=== PATIENT | male | born 1975 | race American Indian/Alaskan Native ===

== ENCOUNTER 2018-06-13 14:03 | Emergency (ER) | payer MEDICAID ==
[2018-06-13 15:15] VITALS: BMI 29.0
[2018-06-13 15:20] VITALS: RESP 18; TEMP 97.9; O2SAT 100
--- NOTE | 2018-06-13 15:48 | ED PDOC ---
Arrival/HPI - General Chief Complaint: Medical Clearance Historian: Patient - History of Present Illness Narrative History of Present Illness (Text): 06/13/18 15:47 42 y/o M, with past medical history of hypertension, and ESRD on hemodialysis (), presents to the ED for emergent dialysis today. Patient states his last dialysis was last week on 06/06/18 without any complication, however was unable to receive his treatment this week secondary to recent relocation. Patient additionally informs missing his routine medications for last two days. Patient currently denies any somatic complaints. Patient denies any fevers, chills, headache, dizziness, chest pain, shortness of breath, dyspnea on exertion, cough, abdominal pain, nausea, vomiting, diarrhea, back pain, neck pain, or any other complaints. Time/Duration: Prior to Arrival Symptom Onset: Gradual Symptom Course: Unchanged Activities at Onset: Light Context: Home Past Medical History - Provider Review Nursing Documentation Reviewed: Yes - Infectious Disease Hx of Infectious Diseases: None - Cardiac Hx Cardiac Disorders: Yes Hx Hypertension: Yes - Pulmonary Hx Respiratory Disorders: No - Neurological Hx Neurological Disorder: No - HEENT Hx HEENT Disorder: No - Renal Hx Renal Disorder: Yes Hx Dialysis: Yes (//Tue) Date of Last Dialysis Treatment: 06/06/18 Hx Renal Failure: Yes - Endocrine/Metabolic Hx Endocrine Disorders: No - Hematological/Oncological Hx Blood Disorders: No - Integumentary Hx Dermatological Disorder: No - Musculoskeletal/Rheumatological Hx Musculoskeletal Disorders: No - Gastrointestinal Hx Gastrointestinal Disorders: No - Genitourinary/Gynecological Hx Genitourinary Disorders: No - Psychiatric Hx Psychophysiologic Disorder: No Hx Substance Use: No - Surgical History Hx Arteriovenous Shunt: Yes Family/Social History - Physician Review Nursing Documentation Reviewed: Yes Family/Social History: Unknown Family HX Smoking Status: Never Smoked Hx Alcohol Use: No Hx Substance Use: No Allergies/Home Meds Allergies/Adverse Reactions: Allergies No Known Allergies Allergy (Verified 06/13/18 15:15) Home Medications: Home Meds Medication Instructions Recorded Confirmed Torsemide [Demadex] 10 mg PO BID 06/13/18 06/13/18 amLODIPine [Norvasc] 10 mg PO BID 06/13/18 06/13/18 cloNIDine [Catapres] 0.2 mg PO DAILY 06/13/18 06/13/18 Review of Systems - Physician Review All systems were reviewed & negative as marked: Yes - Review of Systems Constitutional: absent: Fevers Respiratory: absent: SOB, Cough Cardiovascular: absent: Chest Pain Gastrointestinal: absent: Abdominal Pain, Diarrhea, Nausea, Vomiting Genitourinary Male: absent: Dysuria, Urinary Output Changes Musculoskeletal: absent: Back Pain, Neck Pain Skin: absent: Rash Neurological: absent: Headache, Dizziness Physical Exam Vital Signs Reviewed: Yes Vital Signs Temp Pulse Resp BP Pulse Ox 06/13/18 15:18 97.9 F 67 18 181/65 H 100 Temperature: Afebrile Blood Pressure: Hypertensive Pulse: Regular Respiratory Rate: Normal Appearance: Positive for: Well-Appearing, Non-Toxic, Comfortable Pain Distress: None Mental Status: Positive for: Alert and Oriented X 3 Medical Decision Making ED Course and Treatment: 06/13/18 15:52 Impression: 42 year old male presents to the ED for emergent dialysis today. Differential Diagnosis included but are not limited to: Plan: -- Labs -- Reassess and disposition Prior Visits: Notes and results from previous visits were reviewed. Progress Notes: 06/13/18 16:[address] Boston, who will speak to dialysis team. 06/13/18 17:[address] Herrera who accepts the patient 06/13/18 19:42 Chest X-Ray shows: FINDINGS: LUNGS: No active pulmonary disease. PLEURA: No significant pleural effusion identified, no pneumothorax apparent. CARDIOVASCULAR: No atherosclerotic calcification present Cardiomegaly. No evidence of acute, significant cardiovascular disease. OSSEOUS STRUCTURES: No significant abnormalities. VISUALIZED UPPER ABDOMEN: Normal. OTHER FINDINGS: None. IMPRESSION: No active disease. - RAD Interpretation Art Teacher: Radiologist - EKG Interpretation EKG Interpretation (Text): 06/13/18 18:35 Reviewed EKG, shows: NSR at 66 BPM. LVH present. Peaked T waves seen in precordial leads. Interpreted by ED Physician: Yes Type: 12 lead EKG - Scribe Statement The provider has reviewed the documentation as recorded by the Scribe Paola Stewart. All medical record entries made by the Scribe were at my direction and personally dictated by me. I have reviewed the chart and agree that the record accurately reflects my personal performance of the history, physical exam, medical decision making, and the department course for this patient. I have also personally directed, reviewed, and agree with the discharge instructions and disposition. Disposition/Present on Arrival - Present on Arrival History of DVT/PE: No History of Uncontrolled Diabetes: No Urinary Catheter: No History of Decub. Ulcer: No History Surgical Site Infection Following: None - Disposition Referrals: PCP,NO [Primary Care Provider] - Follow up with primary
[2018-06-13] MEDS ORDERED: Sodium Chloride 0.9% 1,000 ML IV STA (16:15)
[2018-06-13] MEDS ORDERED: Atrop/Hyosc/Scopal/PB Elixir (120 ml) PO STA (16:16)
[2018-06-13] MEDS ORDERED: Alum-Mag Hydrox-Simethicone Susp (30 mL) PO STA (16:16)
[2018-06-13 16:49] LABS: BASO # 0.04 K/mm3 (0.0-2.0); BASO % 0.5 % (0.0-3.0); EOS # 0.3 (0.0-0.7); EOS % 3.5 % (1.5-5.0); HEMOGLOBIN 9.2 g/dL (14.0-18.0); LYMPH # 1.3 (1.2-3.4); LYMPH % 14.2 % (22.0-35.0); MEAN CELL VOLUME 92.1 fl (80.0-105.0); MEAN CORPUSCULAR HEMOGLOBIN 30.3 pg (25.0-35.0); MEAN CORPUSCULAR HGB CONC 32.9 g/dl (31.0-37.0); MEAN PLATELET VOLUME 9.2 fl (7.0-11.0); MONO # 0.4 (0.1-0.6); MONO % 4.1 % (1.0-6.0); RBC 3.04 10^6/uL (3.5-6.1); RED CELL DISTRIBUTION WIDTH 14.5 % (11.5-14.5); WHITE BLOOD COUNT 8.9 10^3/uL (4.5-11.0)
[2018-06-13 17:00] LABS: ALB/GLOB RATIO 1.6 (1.1-1.8); ALBUMIN 4.1 g/dL (3.0-4.8); CALCIUM 9.2 mg/dL (8.4-10.5)
[2018-06-13 17:21] VITALS: BP 160/100; PULSE 72
--- NOTE | 2018-06-13 18:13 | CP.PCM.HP ---
<Guero Kinney - Last Filed: 06/13/18 18:24> History of Present Illness - History of Present Illness History of Present Illness: Guero Kinney DO, PGY-1 Hospitalist Admission History and Physical for Dr. Olivarez CC: missed dialysis HPI: Patient is a 43 year old male with PMH of HTN and ESRD (T// dialysis) who presents for concern of worsening b/l LE swelling, fatigue, and SOB with exertion since this AM. Patient states that he has not had a dialysis session since 06/03/18. He previously went to dialysis in [facility] but has now moved here. He states he has all of his paperwork from [employer] but has not been able to set up with a center yet. Otherwise he denies fever/chills, CP, SOB at rest, cough, nausea/vomiting/abdominal pain, peripheral numbness/tingling, or urinary complaints. PMD: previously had PMD in [place] but has no PMD here Past Medical Hx: HTN and ESRD (/ dialysis) Past Surgical Hx: L AV fistula for dialysis Allergies: NKA Home medications: Norvasc 10 mg daily, Family Hx: father had CKD at early age Social Hx: admits to prior cigarette smoking for about one year and prior social alcohol use but has stopped due to ESRD. Denies illicit drug use Pharmacy: previously went to [facility] in [place] Present on Admission - Present on Admission Any Indicators Present on Admission: No History of DVT/PE: No History of Uncontrolled Diabetes: No Urinary Catheter: No Decubitus Ulcer Present: No Review of Systems - Constitutional Constitutional: absent: Chills, Fever - EENT Eyes: absent: Change in Vision, Discharge - Cardiovascular Cardiovascular: Dyspnea on Exertion. absent: Chest Pain, Chest Pain at Rest, Chest Pain with Activity, Orthopnea, Palpitations - Respiratory Respiratory: Dyspnea on Exertion. absent: Cough, Dyspnea - Gastrointestinal Gastrointestinal: absent: Abdominal Pain, Nausea, Vomiting - Genitourinary Genitourinary: absent: Change in Urinary Stream, Difficulty Urinating - Neurological Neurological: absent: Dizziness, Numbness, Tingling Past Patient History - Infectious Disease Hx of Infectious Diseases: None - Past Social History Smoking Status: Never Smoked - CARDIAC Hx Cardiac Disorders: Yes Hx Hypertension: Yes - PULMONARY Hx Respiratory Disorders: No - NEUROLOGICAL Hx Neurological Disorder: No - HEENT Hx HEENT Problems: No - RENAL Hx Chronic Kidney Disease: Yes Hx Dialysis: Yes (//Tue) Date of Last Dialysis Treatment: 06/06/18 Hx Renal Failure: Yes - ENDOCRINE/METABOLIC Hx Endocrine Disorders: No - HEMATOLOGICAL/ONCOLOGICAL Hx Blood Disorders: No - INTEGUMENTARY Hx Dermatological Problems: No - MUSCULOSKELETAL/RHEUMATOLOGICAL Hx Musculoskeletal Disorders: No - GASTROINTESTINAL Hx Gastrointestinal Disorders: No - GENITOURINARY/GYNECOLOGICAL Hx Genitourinary Disorders: No - PSYCHIATRIC Hx Psychophysiologic Disorder: No Hx Substance Use: No - SURGICAL HISTORY Hx Arteriovenous Shunt: Yes Meds Allergies/Adverse Reactions: Allergies Allergy/AdvReac Type Severity Reaction Status Date / Time No Known Allergies Allergy Verified 06/13/18 15:15 Physical Exam - Constitutional Appears: Non-toxic, No Acute Distress - Head Exam Head Exam: ATRAUMATIC, NORMOCEPHALIC - Eye Exam Eye Exam: EOMI, PERRL - ENT Exam ENT Exam: Mucous Membranes Moist - Neck Exam Neck exam: Positive for: Full Rom, Normal Inspection - Respiratory Exam Respiratory Exam: Clear to Auscultation Bilateral, NORMAL BREATHING PATTERN. absent: Rales, Rhonchi, Wheezes - Cardiovascular Exam Cardiovascular Exam: REGULAR RHYTHM, RRR, +S1, +S2. absent: Diastolic murmur, Gallop, Rubs, Systolic Murmur - GI/Abdominal Exam GI & Abdominal Exam: Normal Bowel Sounds, Soft. absent: Guarding, Tenderness - Extremities Exam Extremities exam: Positive for: full ROM, normal capillary refill, pedal edema (2+ b/l), pedal pulses present - Back Exam Back exam: NORMAL INSPECTION - Neurological Exam Neurological exam: Alert, Oriented x3 - Psychiatric Exam Psychiatric exam: Normal Affect, Normal Mood - Skin Skin Exam: Dry, Intact, Warm Results - Vital Signs Recent Vital Signs: Last Vital Signs Temp 97.9 F 06/13/18 15:18 Pulse 72 06/13/18 17:20 Resp 18 06/13/18 16:43 BP 160/100 H 06/13/18 17:20 Pulse Ox 100 06/13/18 16:43 - Labs Result Diagrams: 06/13/18 16:30 06/13/18 16:30 Labs: Laboratory Results - last 24 hr 06/13/18 06/13/18 16:30 16:30 WBC 8.9 RBC 3.04 L Hgb 9.2 L Hct 28.0 L MCV 92.1 MCH 30.3 MCHC 32.9 RDW 14.5 Plt Count 318 MPV 9.2 Neut % (Auto) 77.7 H Lymph % (Auto) 14.2 L [place] % (Auto) 4.1 Eos % (Auto) 3.5 Baso % (Auto) 0.5 Lymph # (Auto) 1.3 [place] # (Auto) 0.4 Eos # (Auto) 0.3 Baso # (Auto) 0.04 Absolute Neuts (auto) 6.90 H Sodium 138 Potassium 5.4 H Chloride 107 Carbon Dioxide 17 L Anion Gap 20 BUN 122 H* Creatinine 19.9 H* Est GFR ( Amer) 3 Est GFR (Non-Af Amer) 3 Random Glucose 158 H Calcium 9.2 Magnesium 2.7 H Total Bilirubin 0.3 AST 18 ALT 15 Alkaline Phosphatase 87 Total Protein 6.7 Albumin 4.1 Globulin 2.6 Albumin/Globulin Ratio 1.6 Assessment & Plan - Assessment and Plan (Free Text) Assessment: 43 yo M with PMH of HTN and ESRD presents with b/l LE swelling and dyspnea on exertion likely 2/2 missed dialysis sessions. Plan: B/l LE Edema Most likely 2/2 missed dialysis sessions BUN/Cr and K consistent with missed dialysis Arranging for dialysis tonight per Dr. Boston Monitor for improvement of edema, electrolytes Recheck all electrolytes, Mg, Phos in AM Nephrology consult placed, all recs appreciated HTN Will hold anti-hypertensives tonight until after dialysis May resume home meds in AM DVT/GI PPX: SC Heparin/protonix Full Code HHD Monitor on med/surg Patient seen, examined, and plan discussed with my attending Dr. Sher Kinney, D.O. IM Resident PGY-1 Pager: [phone] <Ginette Olivarez - Last Filed: 06/14/18 15:23> Results - Vital Signs Recent Vital Signs: Last Vital Signs Temp 97.9 F 06/13/18 15:18 Pulse 72 06/13/18 17:20 Resp 18 06/13/18 16:43 BP 160/100 H 06/13/18 17:20 Pulse Ox 100 06/13/18 16:43 - Labs Result Diagrams: 06/13/18 16:30 06/13/18 16:30 Labs: Laboratory Results - last 24 hr 06/13/18 06/13/18 16:30 16:30 WBC 8.9 RBC 3.04 L Hgb 9.2 L Hct 28.0 L MCV 92.1 MCH 30.3 MCHC 32.9 RDW 14.5 Plt Count 318 MPV 9.2 Neut % (Auto) 77.7 H Lymph % (Auto) 14.2 L [place] % (Auto) 4.1 Eos % (Auto) 3.5 Baso % (Auto) 0.5 Lymph # (Auto) 1.3 [place] # (Auto) 0.4 Eos # (Auto) 0.3 Baso # (Auto) 0.04 Absolute Neuts (auto) 6.90 H Sodium 138 Potassium 5.4 H Chloride 107 Carbon Dioxide 17 L Anion Gap 20 BUN 122 H* Creatinine 19.9 H* Est GFR ( Amer) 3 Est GFR (Non-Af Amer) 3 Random Glucose 158 H Calcium 9.2 Magnesium 2.7 H Total Bilirubin 0.3 AST 18 ALT 15 Alkaline Phosphatase 87 Total Protein 6.7 Albumin 4.1 Globulin 2.6 Albumin/Globulin Ratio 1.6 Attending/Attestation - Attestation I have personally seen and examined this patient.: Yes I have fully participated in the care of the patient.: Yes I have reviewed all pertinent clinical information: Yes Notes (Text): 06/14/18 15:19 Attending note; Patient seen and examined with resident and ER. Patient is alert and awake. Complaining of leg swelling. Requesting immediate dialysis. Not in any acute distress. Patient is demanding. Patient is a 43 year old male with PMH of HTN and ESRD (T// dialysis) who presents for concern of worsening b/l LE swelling, fatigue, and SOB with exertion since this AM. Patient states that he has not had a dialysis session since 06/03/18. He previously went to dialysis in [facility] but has now moved here. He did not make any arrangements for dialysis before left [facility]. currently Demanding dialysis. 1. End-stage renal disease on dialysis; noncompliant with follow-up due to recent move. Patient did not make any arrangements with the dialysis unit. Currently no primary care doctor. Case discussed with nephrology in detail. Plan for dialysis today. 2. Uncontrolled hypertension; patient does not have any prescription/ or medications. Patient will be admitted and monitored closely. We will get social insurance adviser evaluation. Addendum; Patient eloped before dialysis.
--- NOTE | 2018-06-13 18:34 | CP.PCM.CON ---
<Brian Mahmood - Last Filed: 06/13/18 18:45> History of Present Illness - History of Present Illness History of Present Illness: Brian Mahmood PGY2 Nephrology Consult NOte for Dr. Boston 43 year old AA male with PMH of HTN and ESRD (T//S dialysis) who presents for concern of worsening b/l LE swelling, fatigue, and SOB with exertion since this AM. Patient states that he has not had a dialysis session since 06/03/18 because he recently was in the process of moving from [facility] to the [facility]. He also states he has not been able to take all his medications for the past two days because he ran out of them. Patient denies chest pain, SOB at rest, cough, nausea/vomiting/abdominal pain, peripheral numbness/tingling, or urinary complaints. Patient also states he still makes urine. 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 PMD: does not recall name but located in [place] [employer] Tender: Does not recall name but located in [place] Past Medical Hx: HTN and ESRD (T//S dialysis) Past Surgical Hx: L AV fistula for dialysis Allergies: NKA Home medications: Norvasc 10 mg daily, carvedilol, torsemide, clonidine Family Hx: father had CKD at early age Social Hx: has smoked tobacco occasionally in the past but quit since dialysis, denies alcohol or illicit drug use Pharmacy:[facility] in [place] Review of Systems - Constitutional Constitutional: Fatigue, Weight Gain. absent: Chills, Fever - Cardiovascular Cardiovascular: Dyspnea, Palpitations, Pedal Edema. absent: Chest Pain, Chest Pain at Rest, Chest Pain with Activity, Diaphoresis, Lightheadedness - Respiratory Respiratory: Dyspnea on Exertion. absent: Cough, Wheezing, Pain on Inspiration, Chest Congestion - Gastrointestinal Gastrointestinal: absent: Abdominal Pain, Nausea, Vomiting - Genitourinary Genitourinary: absent: Difficulty Urinating, Dysuria, Flank Pain, Hematuria, Urinary Incontinence - Musculoskeletal Musculoskeletal: absent: Back Pain, Muscle Weakness, Tingling - Neurological Neurological: absent: Disequilibrium, Dizziness, Tingling - Endocrine Endocrine: absent: Excessive Sweating Past Patient History - Infectious Disease Hx of Infectious Diseases: None - Past Social History Smoking Status: Never Smoked - CARDIAC Hx Cardiac Disorders: Yes Hx Hypertension: Yes - PULMONARY Hx Respiratory Disorders: No - NEUROLOGICAL Hx Neurological Disorder: No - HEENT Hx HEENT Problems: No - RENAL Hx Chronic Kidney Disease: Yes Hx Dialysis: Yes (//Tue) Date of Last Dialysis Treatment: 06/06/18 Hx Renal Failure: Yes - ENDOCRINE/METABOLIC Hx Endocrine Disorders: No - HEMATOLOGICAL/ONCOLOGICAL Hx Blood Disorders: No - INTEGUMENTARY Hx Dermatological Problems: No - MUSCULOSKELETAL/RHEUMATOLOGICAL Hx Musculoskeletal Disorders: No - GASTROINTESTINAL Hx Gastrointestinal Disorders: No - GENITOURINARY/GYNECOLOGICAL Hx Genitourinary Disorders: No - PSYCHIATRIC Hx Psychophysiologic Disorder: No Hx Substance Use: No - SURGICAL HISTORY Hx Arteriovenous Shunt: Yes Meds Allergies/Adverse Reactions: Allergies Allergy/AdvReac Type Severity Reaction Status Date / Time No Known Allergies Allergy Verified 06/13/18 15:15 - Medications Medications: Current Medications Acetaminophen (Tylenol 325mg Tab) 650 mg PO Q6H PRN PRN Reason: Pain, moderate (4-7) Amlodipine Besylate (Norvasc) 10 mg PO BID RAMÍREZ Clonidine HCl (Catapres) 0.2 mg PO DAILY [facility] Heparin Sodium (Porcine) (Heparin) 5,000 units SC Q8 RAMÍREZ; Protocol Insulin Human Lispro (Humalog Med) 0 units SC ACHS RAMÍREZ; Protocol Pantoprazole Sodium (Protonix Ec Tab) 40 mg PO 0600 RAMÍREZ Torsemide (Demadex) 10 mg PO BID RAMÍREZ Physical Exam - Constitutional Appears: Non-toxic, No Acute Distress - Head Exam Head Exam: ATRAUMATIC, NORMAL INSPECTION, NORMOCEPHALIC - Eye Exam Eye Exam: Normal appearance - ENT Exam ENT Exam: Mucous Membranes Moist - Respiratory Exam Respiratory Exam: Clear to Auscultation Bilateral, NORMAL BREATHING PATTERN - Cardiovascular Exam Cardiovascular Exam: REGULAR RHYTHM, +S1, +S2 - GI/Abdominal Exam GI & Abdominal Exam: Soft. absent: Tenderness - Extremities Exam Extremities exam: Positive for: pedal edema, pedal pulses present. Negative for: calf tenderness, tenderness Additional comments: AV fistula in left arm, audible thrill, no bruit - Neurological Exam Neurological exam: Alert, CN II-XII Intact, Oriented x3 - Skin Skin Exam: Normal Color, Warm Results - Vital Signs Recent Vital Signs: Last Vital Signs Temp 97.9 F 06/13/18 15:18 Pulse 72 06/13/18 17:20 Resp 18 06/13/18 16:43 BP 160/100 H 06/13/18 17:20 Pulse Ox 100 06/13/18 16:43 - Labs Result Diagrams: 06/13/18 16:30 06/13/18 16:30 Labs: Laboratory Results - last 24 hr 06/13/18 06/13/18 16:30 16:30 WBC 8.9 RBC 3.04 L Hgb 9.2 L Hct 28.0 L MCV 92.1 MCH 30.3 MCHC 32.9 RDW 14.5 Plt Count 318 MPV 9.2 Neut % (Auto) 77.7 H Lymph % (Auto) 14.2 L [place] % (Auto) 4.1 Eos % (Auto) 3.5 Baso % (Auto) 0.5 Lymph # (Auto) 1.3 [place] # (Auto) 0.4 Eos # (Auto) 0.3 Baso # (Auto) 0.04 Absolute Neuts (auto) 6.90 H Sodium 138 Potassium 5.4 H Chloride 107 Carbon Dioxide 17 L Anion Gap 20 BUN 122 H* Creatinine 19.9 H* Est GFR ( Amer) 3 Est GFR (Non-Af Amer) 3 Random Glucose 158 H Calcium 9.2 Magnesium 2.7 H Total Bilirubin 0.3 AST 18 ALT 15 Alkaline Phosphatase 87 Total Protein 6.7 Albumin 4.1 Globulin 2.6 Albumin/Globulin Ratio 1.6 Assessment & Plan - Assessment and Plan (Free Text) Assessment: 43 year old AA male with PMH of HTN and ESRD (T//S dialysis) who presents for concern of worsening b/l LE swelling, fatigue, and SOB with exertion since this AM. Patient has not had HD since 06/03/18 and has not taken his blood pressure medications for the pat two days. Plan: 1. ESRD on HD -patient has not had dialysis since 06/03/18 -Cr 19.9, BUN 122 -K of 5.4 -Na within normal limits -EKG was normal sinus rhythm, unofficial read -Chest xray does not show significant congestion, will wait for official read -lower extremity edema present -will receive emergent HD -continue to monitor -repeat labs in AM 2. HTN Chronic -BP 181/65 on admission -given clonidine .2mg, norvasc 10mg in ED with improvement in BP to 160/100 -will resume home meds tomorrow -avoid dropping blood pressure too rapidly before HD session -continue to monitor 3. Elevated Blood Sugar -BS of 158 -insulin sliding scale -lipid panel pending -hemoglobin A1C pending <Galindo Boston - Last Filed: 06/14/18 13:20> Results - Vital Signs Recent Vital Signs: Last Vital Signs Temp 97.9 F 06/13/18 15:18 Pulse 72 06/13/18 17:20 Resp 18 06/13/18 16:43 BP 160/100 H 06/13/18 17:20 Pulse Ox 100 06/13/18 16:43 - Labs Result Diagrams: 06/13/18 16:30 06/13/18 16:30 Labs: Laboratory Results - last 24 hr 06/13/18 06/13/18 16:30 16:30 WBC 8.9 RBC 3.04 L Hgb 9.2 L Hct 28.0 L MCV 92.1 MCH 30.3 MCHC 32.9 RDW 14.5 Plt Count 318 MPV 9.2 Neut % (Auto) 77.7 H Lymph % (Auto) 14.2 L [place] % (Auto) 4.1 Eos % (Auto) 3.5 Baso % (Auto) 0.5 Lymph # (Auto) 1.3 [place] # (Auto) 0.4 Eos # (Auto) 0.3 Baso # (Auto) 0.04 Absolute Neuts (auto) 6.90 H Sodium 138 Potassium 5.4 H Chloride 107 Carbon Dioxide 17 L Anion Gap 20 BUN 122 H* Creatinine 19.9 H* Est GFR ( Amer) 3 Est GFR (Non-Af Amer) 3 Random Glucose 158 H Calcium 9.2 Magnesium 2.7 H Total Bilirubin 0.3 AST 18 ALT 15 Alkaline Phosphatase 87 Total Protein 6.7 Albumin 4.1 Globulin 2.6 Albumin/Globulin Ratio 1.6 Attending/Attestation - Attestation I have personally seen and examined this patient.: Yes I have fully participated in the care of the patient.: Yes I have reviewed all pertinent clinical information: Yes Notes (Text): Patient seen and examined; I agree with the resident's note as above with the following additions/edits: 43 yo M w/ pmh of htn and ESRD on HD (since past 8 months, at [facility]), presented to ED with leg swelling and missed HD; nephrology being consulted for need for urgent HD; Patient reports last HD treatment 10 days ago; had to move to this area due to some family issues; currently denies shortness of breath though legs much more edematous than usual; makes normal amount of urine and takes diuretics; has been trying to have decreased PO intake in order to avoid toxin buildup in the setting of missed HD; otherwise says his appetite is well and is currently hungry; Lungs clear on exam and by CXR; 2+ b/l lower ext edema noted though patient in no resp distress and not requiring supplemental FIO2; minimal asterisix; Patient also with uncontrolled htn; will continue home meds but will benefit from UF on HD; Anemia of CKD; will need to check iron studies; Patient seen this evening in ED; was told that he would have to wait about 1-2 hrs to start HD due to logistical issues and that there's no absolute emergency to start HD stat; nevertheless, he should have HD treatment tonight to avoid an emergency later; patient, however, said that he couldn't wait and needed to tend to his young daughter; I informed him although he has some residual renal function that has allowed him to survive for this many days without HD, skipping further HD treatment was a dangerous decision and against medical advice; I told him of the risk of sudden ; I was later informed by HD nurse that patient eloped from ED; we will reach out to him to enourage him to get HD treatment [place].
--- NOTE | 2018-06-13 18:43 | RAD ---
Date of service: 06/13/2018 HISTORY: r/o CHF COMPARISON: No prior. FINDINGS: LUNGS: No active pulmonary disease. PLEURA: No significant pleural effusion identified, no pneumothorax apparent. CARDIOVASCULAR: No atherosclerotic calcification present Cardiomegaly. No evidence of acute, significant cardiovascular disease. OSSEOUS STRUCTURES: No significant abnormalities. VISUALIZED UPPER ABDOMEN: Normal. OTHER FINDINGS: None. IMPRESSION: No active disease.
[2018-06-13] MEDS ORDERED: Insulin Lispro (humaLOG) MEDIUM Coverage SC SCH (22:00)
--- NOTE | 2018-06-13 22:19 | CARD ---
APPROVED REPORT Date of service: 06/13/2018 EKG Measurement Heart [id number] <Conclusion> Normal sinus rhythm Minimal voltage criteria for LVH, may be normal variant NDSTT abnormalities Abnormal ECG
[2018-06-14] MEDS ORDERED: Pantoprazole 40 mg EC Tab PO SCH (06:00)
--- NOTE | 2018-06-14 15:57 | CP.PCM.DIS ---
Provider - Provider Primary care physician: NO PRIMARY CARE PROVIDER Consults: 06/13/18 17:17 Physician Consult Stat Comment: Consulting Provider: Galindo Boston Consulting Physician: Galindo Boston Reason for Consult: ESRD needing emergenc dialysis Time Spent in preparation of Discharge (in minutes): 35 Diagnosis - Discharge Diagnosis (1) ESRD needing dialysis Status: Chronic Hospital Course - Lab Results Lab Results: Most Recent Lab Values WBC 8.9 10^3/uL (4.5-11.0) 06/13/18 16:30 RBC 3.04 10^6/uL (3.5-6.1) L 06/13/18 16:30 Hgb 9.2 g/dL (14.0-18.0) L 06/13/18 16:30 Hct 28.0 % (42.0-52.0) L 06/13/18 16:30 MCV 92.1 fl (80.0-105.0) 06/13/18 16:30 MCH 30.3 pg (25.0-35.0) 06/13/18 16:30 MCHC 32.9 g/dl (31.0-37.0) 06/13/18 16:30 RDW 14.5 % (11.5-14.5) 06/13/18 16:30 Plt Count 318 10^3/uL (120.0-450.0) 06/13/18 16:30 MPV 9.2 fl (7.0-11.0) 06/13/18 16:30 Neut % (Auto) 77.7 % (50.0-68.0) H 06/13/18 16:30 Lymph % (Auto) 14.2 % (22.0-35.0) L 06/13/18 16:30 Gregg % (Auto) 4.1 % (1.0-6.0) 06/13/18 16:30 Eos % (Auto) 3.5 % (1.5-5.0) 06/13/18 16:30 Baso % (Auto) 0.5 % (0.0-3.0) 06/13/18 16:30 Lymph # (Auto) 1.3 (1.2-3.4) 06/13/18 16:30 Gregg # (Auto) 0.4 (0.1-0.6) 06/13/18 16:30 Eos # (Auto) 0.3 (0.0-0.7) 06/13/18 16:30 Baso # (Auto) 0.04 K/mm3 (0.0-2.0) 06/13/18 16:30 Absolute Neuts (auto) 6.90 (1.4-6.5) H 06/13/18 16:30 Sodium 138 mmol/L (132-148) 06/13/18 16:30 Potassium 5.4 mmol/L (3.6-5.0) H 06/13/18 16:30 Chloride 107 mmol/L (98-107) 06/13/18 16:30 Carbon Dioxide 17 mmol/L (21-33) L 06/13/18 16:30 Anion Gap 20 (10-20) 06/13/18 16:30 BUN 122 mg/dL (7-21) H* 06/13/18 16:30 Creatinine 19.9 mg/dl (0.8-1.5) H* 06/13/18 16:30 Est GFR ( Amer) 3 06/13/18 16:30 Est GFR (Non-Af Amer) 3 06/13/18 16:30 Random Glucose 158 mg/dL (70-110) H 06/13/18 16:30 Calcium 9.2 mg/dL (8.4-10.5) 06/13/18 16:30 Magnesium 2.7 mg/dL (1.7-2.2) H 06/13/18 16:30 Total Bilirubin 0.3 mg/dL (0.2-1.3) 06/13/18 16:30 AST 18 U/L (17-59) 06/13/18 16:30 ALT 15 U/L (7-56) 06/13/18 16:30 Alkaline Phosphatase 87 U/L (38-126) 06/13/18 16:30 Total Protein 6.7 g/dL (5.8-8.3) 06/13/18 16:30 Albumin 4.1 g/dL (3.0-4.8) 06/13/18 16:30 Globulin 2.6 gm/dL 06/13/18 16:30 Albumin/Globulin Ratio 1.6 (1.1-1.8) 06/13/18 16:30 - Hospital Course Hospital Course: Patient was scheduled for dialysis and consent obtained per Dr. Boston but eloped prior to receiving dialysis. Patient eloped from ED. Discharge Exam - Head Exam Head Exam: ATRAUMATIC, NORMAL INSPECTION, NORMOCEPHALIC Additional comments: unable to obtain, patient eloped Discharge Plan - Follow Up Plan Condition: GOOD Disposition: ELOPEMENT - ER ONLY Referrals: PCP,NO [Primary Care Provider] - Follow up with primary
== END 2018-06-13 19:43 | disposition left against medical advice (07) ==
LOC: ED 14:03 → UNDOADMIN 17:16 → ERH 17:16 → ED 19:43
DX: I12.0 Hypertensive chronic kidney disease with stage 5 chronic kidney disease or end stage renal disease (principal); N18.6 End stage renal disease; Z99.2 Dependence on renal dialysis; Z91.15 Patient's noncompliance with renal dialysis; Z87.891 Personal history of nicotine dependence

== ENCOUNTER 2018-08-09 15:50 | Observation (INO) | payer MEDICAID ==
[2018-08-09 16:28] VITALS: BP 146/83; PULSE 73; RESP 19; TEMP 97.6; O2SAT 98; BMI 30.9
--- NOTE | 2018-08-09 16:55 | ED PDOC ---
Arrival/HPI - General Chief Complaint: Medical Clearance Time Seen by Provider: 08/09/18 15:59 Historian: Patient EM Caveat: Respiratory Distress - History of Present Illness Narrative History of Present Illness (Text): 08/09/18 15:59 Pt is a 43 y/o male, with a past medical history of ESRD on dialysis (M/W/F) and hypertension, who presents to the emergency department for evaluation of dialysis graft on left upper arm. Patient informs [facility] dialysis informed his dialysis graft is clogged. Patient's last dialysis was last Tuesday07/04/18. Patient informs missing dialysis on 07/07/18 as well as today. Patient does not have a PMD. Patient denies any fevers, chills, headache, dizziness, chest pain, shortness of breath, dyspnea on exertion, cough, abdominal pain, nausea, vomiting, diarrhea, dysuria, hematuria, urinary frequency changes, back pain, neck pain, or any other complaint. Symptom Onset: Gradual Symptom Course: Unchanged Activities at Onset: Light Context: Other (Dialysis Center ) Past Medical History - Provider Review Nursing Documentation Reviewed: Yes - Infectious Disease Hx of Infectious Diseases: None - Cardiac Hx Cardiac Disorders: No - Pulmonary Hx Respiratory Disorders: No - Neurological Hx Neurological Disorder: No - HEENT Hx HEENT Disorder: No - Renal Hx Renal Disorder: Yes Hx Dialysis: Yes (//Tue) Date of Last Dialysis Treatment: 08/04/18 Hx Renal Failure: Yes - Endocrine/Metabolic Hx Endocrine Disorders: No - Hematological/Oncological Hx Blood Disorders: Yes Hx Blood Transfusions: Yes (FEW MONTHS AGO) - Integumentary Hx Dermatological Disorder: No - Musculoskeletal/Rheumatological Hx Musculoskeletal Disorders: No - Gastrointestinal Hx Gastrointestinal Disorders: No - Genitourinary/Gynecological Hx Genitourinary Disorders: No - Psychiatric Hx Psychophysiologic Disorder: No Hx Substance Use: No - Surgical History Hx Arteriovenous Shunt: Yes - Anesthesia Hx Anesthesia Reactions: No - Suicidal Assessment Feels Threatened In Home Enviroment: No Family/Social History - Physician Review Nursing Documentation Reviewed: Yes Family/Social History: Unknown Family HX Smoking Status: Never Smoked Hx Alcohol Use: No Hx Substance Use: No Allergies/Home Meds Allergies/Adverse Reactions: Allergies No Known Allergies Allergy (Verified 08/09/18 15:58) Home Medications: Home Meds Medication Instructions Recorded Confirmed amLODIPine [Norvasc] 10 mg PO QPM 06/13/18 08/09/18 cloNIDine [Catapres] 0.2 mg PO BID 06/13/18 08/09/18 Carvedilol [Coreg] 25 mg PO BID 07/14/18 08/09/18 Review of Systems - Physician Review All systems were reviewed & negative as marked: Yes - Review of Systems Constitutional: absent: Fevers, Other (chills) Respiratory: absent: SOB, Cough Cardiovascular: absent: Chest Pain, CHAVEZ Gastrointestinal: absent: Abdominal Pain, Diarrhea, Nausea, Vomiting Genitourinary Male: absent: Dysuria, Frequency (frequency changes), Hematuria Musculoskeletal: absent: Back Pain, Neck Pain Neurological: absent: Headache, Dizziness Physical Exam - Physical Exam Narrative Physical Exam (Text): 08/09/18 15:59 Gen: VS reviewed, alert, well developed, well nourished, nontoxic, mild distress. ENT: normal pharynx. Eye: EOMI, PERRL. Neck: no JVD, supple, no adenopathy. CV: regular rate, regular rhythm, no rubs, no murmur, no gallops, S1, S2, pulses equal and strong. Pulm: no distress, clear to auscultation, no wheeze, no rhonchi, breath sounds equal, no rales. Abd: soft, nontender, no guarding, no rebound, no rigidity, normal bowel sounds. Ext: positive thrill on left upper arm. no edema. Skin: good color, no rash, no cyanosis. Psych: responds appropriately to questions, normal affect. Neuro: oriented x 3, CN2-12 intact grossly, motor intact, sensation intact. Vital Signs Reviewed: Yes Vital Signs Temp Pulse Resp BP Pulse Ox 08/09/18 15:57 97.6 F 73 19 146/83 98 Temperature: Afebrile Blood Pressure: Normal Pulse: Regular Respiratory Rate: Normal Appearance: Positive for: Well-Appearing, Non-Toxic, Comfortable Pain Distress: None Mental Status: Positive for: Alert and Oriented X 3 Medical Decision Making ED Course and Treatment: 08/09/18 17:[address] johnson to the hospitalist service. patient to be admitted for HD, hyperkalemic. being that the patient has severely abnormal kidney function and already exhibits elevations in potassium, patient is at risk for severe hyperkalemia. will admit for HD and dr. orozco will assume care for HD. 08/09/18 17:51 patient refusing ekg - Scribe Statement The provider has reviewed the documentation as recorded by the Scribe William Matute All medical record entries made by the Scribe were at my direction and personally dictated by me. I have reviewed the chart and agree that the record accurately reflects my personal performance of the history, physical exam, medical decision making, and the department course for this patient. I have also personally directed, reviewed, and agree with the discharge instructions and disposition. Disposition/Present on Arrival - Present on Arrival Any Indicators Present on Arrival: No History of DVT/PE: No History of Uncontrolled Diabetes: No Urinary Catheter: No History of Decub. Ulcer: No History Surgical Site Infection Following: None - Disposition Have Diagnosis and Disposition been Completed?: Yes Diagnosis: Renal failure, Hyperkalemia Disposition: HOSPITALIZED Disposition Time: 17:50 Patient Plan: Admission Condition: STABLE Forms: [employer] (Yakut)
[2018-08-09 17:05] LABS: BASO # 0.05 K/mm3 (0.0-2.0); BASO % 0.7 % (0.0-3.0); EOS # 0.4 (0.0-0.7); EOS % 5.3 % (1.5-5.0); HEMOGLOBIN 10.9 g/dL (14.0-18.0); LYMPH # 1.4 (1.2-3.4); LYMPH % 18.9 % (22.0-35.0); MEAN CELL VOLUME 93.8 fl (80.0-105.0); MEAN CORPUSCULAR HEMOGLOBIN 30.6 pg (25.0-35.0); MEAN CORPUSCULAR HGB CONC 32.6 g/dl (31.0-37.0); MEAN PLATELET VOLUME 9.2 fl (7.0-11.0); MONO # 0.3 (0.1-0.6); MONO % 3.9 % (1.0-6.0); RBC 3.56 10^6/uL (3.5-6.1); RED CELL DISTRIBUTION WIDTH 15.5 % (11.5-14.5); WHITE BLOOD COUNT 7.5 10^3/uL (4.5-11.0)
[2018-08-09 17:13] LABS: ALB/GLOB RATIO 1.6 (1.1-1.8); ALBUMIN 4.2 g/dL (3.0-4.8); CALCIUM 9.1 mg/dL (8.4-10.5)
--- NOTE | 2018-08-09 17:51 | CP.PCM.HP ---
<NikiLeeroy mckee - Last Filed: 08/09/18 21:54> History of Present Illness - History of Present Illness History of Present Illness: PGY-1 Medicine H&P for Dr. Awad CC: missed dialysis HPI: Patient is a 43 year old male with PMH of HTN and ESRD (M/W/F dialysis) who presents for fatigue after missing a hemodialysis session. He states that his last dialysis session was last Tuesday. Patient states that he was unable to get dialysis this past Tuesday due to his AV fistula not working. He other shah has no other complaints. Patient was last admitted to [facility] for similar complaints and eloped. He denies fevers, chills, shortness of breath, chest pain, abdominal pain, nausea, vomiting, diarrhea, or urinary symptoms. Of note, nurse contacted his hemodialysis center and states that the patient is non-compliant and often skips his scheduled dialysis. There is nothing wrong with patient's AV fistula and he completed a session without issues last Tuesday. 12 system ROS reviewed and negative except mentioned in HPI. PMD: denies Past Medical Hx: HTN and ESRD (M/W/F dialysis) Past Surgical Hx: L AV fistula for dialysis Allergies: NKDA Home medications: see MAR Family Hx: father had CKD at early age Social Hx: admits to prior cigarette smoking for about one year and prior social alcohol use but has stopped due to ESRD. Denies illicit drug use [facility]acy: [facility] Present on Admission - Present on Admission Any Indicators Present on Admission: No History of DVT/PE: No History of Uncontrolled Diabetes: No Urinary Catheter: No Decubitus Ulcer Present: No Past Patient History - Infectious Disease Hx of Infectious Diseases: None - Past Social History Smoking Status: Never Smoked - CARDIAC Hx Cardiac Disorders: No - PULMONARY Hx Respiratory Disorders: No - NEUROLOGICAL Hx Neurological Disorder: No - HEENT Hx HEENT Problems: No - RENAL Hx Chronic Kidney Disease: Yes Hx Dialysis: Yes (//Tue) Date of Last Dialysis Treatment: 08/04/18 Hx Renal Failure: Yes - ENDOCRINE/METABOLIC Hx Endocrine Disorders: No - HEMATOLOGICAL/ONCOLOGICAL Hx Blood Disorders: Yes Hx Blood Transfusions: Yes (FEW MONTHS AGO) - INTEGUMENTARY Hx Dermatological Problems: No - MUSCULOSKELETAL/RHEUMATOLOGICAL Hx Musculoskeletal Disorders: No - GASTROINTESTINAL Hx Gastrointestinal Disorders: No - GENITOURINARY/GYNECOLOGICAL Hx Genitourinary Disorders: No - PSYCHIATRIC Hx Psychophysiologic Disorder: No Hx Substance Use: No - SURGICAL HISTORY Hx Arteriovenous Shunt: Yes - ANESTHESIA Hx Anesthesia Reactions: No Meds Allergies/Adverse Reactions: Allergies Allergy/AdvReac Type Severity Reaction Status Date / Time No Known Allergies Allergy Verified 08/09/18 15:58 Physical Exam - Constitutional Appears: Well, Non-toxic, No Acute Distress - Head Exam Head Exam: ATRAUMATIC, NORMAL INSPECTION - Eye Exam Eye Exam: EOMI, Normal appearance - ENT Exam ENT Exam: Mucous Membranes Moist - Neck Exam Neck exam: Positive for: Normal Inspection - Respiratory Exam Respiratory Exam: Clear to Auscultation Bilateral, NORMAL BREATHING PATTERN. absent: Rales, Rhonchi, Wheezes, Respiratory Distress - Cardiovascular Exam Cardiovascular Exam: REGULAR RHYTHM, +S1, +S2. absent: Gallop, Rubs, Systolic Murmur - GI/Abdominal Exam GI & Abdominal Exam: Normal Bowel Sounds, Soft. absent: Tenderness - Extremities Exam Extremities exam: Positive for: normal inspection Additional comments: AV fistula on left arm. Bruit heard, thrill palpable - Back Exam Back exam: NORMAL INSPECTION. absent: CVA tenderness (L), CVA tenderness (R), paraspinal tenderness - Neurological Exam Neurological exam: Alert, CN II-XII Intact, Oriented x3 - Psychiatric Exam Psychiatric exam: Normal Affect, Normal Mood - Skin Skin Exam: Dry, Intact, Normal Color, Warm Results - Vital Signs Recent Vital Signs: Last Vital Signs Temp 97.6 F 08/09/18 15:57 Pulse 73 08/09/18 15:57 Resp 19 08/09/18 15:57 BP 146/83 08/09/18 15:57 Pulse Ox 98 08/09/18 15:57 - Labs Result Diagrams: 08/09/18 16:50 08/09/18 16:50 Labs: Laboratory Results - last 24 hr 08/09/18 08/09/18 16:50 16:50 WBC 7.5 RBC 3.56 Hgb 10.9 L Hct 33.4 L MCV 93.8 MCH 30.6 MCHC 32.6 RDW 15.5 H Plt Count 253 MPV 9.2 Neut % (Auto) 71.2 H Lymph % (Auto) 18.9 L Greene % (Auto) 3.9 Eos % (Auto) 5.3 H Baso % (Auto) 0.7 Lymph # (Auto) 1.4 Greene # (Auto) 0.3 Eos # (Auto) 0.4 Baso # (Auto) 0.05 Absolute Neuts (auto) 5.35 Sodium 137 Potassium 5.6 H* Chloride 98 Carbon Dioxide 25 Anion Gap 20 BUN 98 H Creatinine 18.2 H* Est GFR ( Amer) 3 Est GFR (Non-Af Amer) 3 Random Glucose 100 Calcium 9.1 Phosphorus 6.0 H Magnesium 2.8 H Total Bilirubin 0.4 AST 30 ALT 26 Alkaline Phosphatase 86 Total Protein 6.8 Albumin 4.2 Globulin 2.6 Albumin/Globulin Ratio 1.6 Assessment & Plan - Assessment and Plan (Free Text) Assessment: Patient is a 43 year old male with PMH of HTN and ESRD (M/W/F dialysis) who presenting with fatigue after missing hemodialysis. Plan: ESRD on HD (M/W/F) - Patient missed dialysis on Tuesday - Patient had emergent dialysis today - Plan for another dialysis session tomorrow - Nephrology consulted, Dr. Boston - Continue home medication Phoslo, Torsemide - Renal diet Hypertension - Continue home Norvasc, Clonidine - Continue to monitor Disposition: Patient Left AMA on 08/09 Patient seen and case discussed with attending, Dr. Awad. Leeroy Rivera, PGY-1 <Wanda Awad - Last Filed: 08/10/18 07:52> Results - Vital Signs Recent Vital Signs: Last Vital Signs Temp 97.6 F 08/09/18 15:57 Pulse 73 08/09/18 15:57 Resp 19 08/09/18 15:57 BP 146/83 08/09/18 15:57 Pulse Ox 98 08/09/18 15:57 - Labs Result Diagrams: 08/09/18 16:50 08/09/18 16:50 Labs: Laboratory Results - last 24 hr 08/09/18 08/09/18 16:50 16:50 WBC 7.5 RBC 3.56 Hgb 10.9 L Hct 33.4 L MCV 93.8 MCH 30.6 MCHC 32.6 RDW 15.5 H Plt Count 253 MPV 9.2 Neut % (Auto) 71.2 H Lymph % (Auto) 18.9 L Greene % (Auto) 3.9 Eos % (Auto) 5.3 H Baso % (Auto) 0.7 Lymph # (Auto) 1.4 Greene # (Auto) 0.3 Eos # (Auto) 0.4 Baso # (Auto) 0.05 Absolute Neuts (auto) 5.35 Sodium 137 Potassium 5.6 H* Chloride 98 Carbon Dioxide 25 Anion Gap 20 BUN 98 H Creatinine 18.2 H* Est GFR ( Amer) 3 Est GFR (Non-Af Amer) 3 Random Glucose 100 Calcium 9.1 Phosphorus 6.0 H Magnesium 2.8 H Total Bilirubin 0.4 AST 30 ALT 26 Alkaline Phosphatase 86 Total Protein 6.8 Albumin 4.2 Globulin 2.6 Albumin/Globulin Ratio 1.6 Attending/Attestation - Attestation I have personally seen and examined this patient.: Yes I have fully participated in the care of the patient.: Yes I have reviewed all pertinent clinical information: Yes Notes (Text): 08/10/18 07:46 Medical record note made by the resident after discussion with my direction and input after the patient was personally seen and examined by me. I have reviewed the chart and agree that the record accurately reflects by personal performance of the history, physical exam, data review, and medical decision-making, in the course for the patient. I have also personally directed the plan of care. 43 yrs old male with PMH of ESRD on HD M/W/F,HTN, non compliance with dialysis was admitted as he claims that his AAV graft is not working and since last Tuesday he did not has any dialysis.The Tuesday dialysis was also not completed as AV graft was not working. He has mild hyperkalemia, no evidence of fluid overload . Case was discussed with Nephrology, plan for HD today, if graft will not work, will get vascular surgery evaluation. Management plan was discussed in detail with patient. Education was provided
--- NOTE | 2018-08-09 17:57 | RAD ---
HISTORY: chf COMPARISON: None available. TECHNIQUE: Chest, one view. FINDINGS: LUNGS: No focal consolidation. Please note that chest x-ray has limited sensitivity for the detection of pulmonary masses. PLEURA: No significant pleural effusion identified. No definite pneumothorax . CARDIOVASCULAR: Cardiomegaly. Prominent mediastinum may be exaggerated by ectatic aorta and patient obliquity. No significant atherosclerotic calcification present. OSSEOUS STRUCTURES: Degenerative changes of the spine. VISUALIZED UPPER ABDOMEN: Unremarkable. OTHER FINDINGS: None. IMPRESSION: Cardiomegaly. Prominent mediastinum may be exaggerated by ectatic aorta and patient obliquity.
--- NOTE | 2018-08-09 22:05 | CP.PCM.DIS ---
<Leeroy Rivera - Last Filed: 08/09/18 22:02> Provider - Provider Date of Admission: 08/09/18 17:47 Attending physician: Wanda Awad MD Primary care physician: Wanda Awad MD Consults: 08/09/18 18:43 Physiatry Consult Routine Comment: Consulting Provider: Galindo Boston Consulting Physician: Galindo Boston Reason for Consult: ESRD, missed dialysis Time Spent in preparation of Discharge (in minutes): 45 Diagnosis - Discharge Diagnosis (1) Hyperkalemia Status: Acute (2) Renal failure Status: Chronic (3) ESRD needing dialysis Status: Acute Hospital Course - Lab Results Lab Results: Most Recent Lab Values WBC 7.5 10^3/uL (4.5-11.0) 08/09/18 16:50 RBC 3.56 10^6/uL (3.5-6.1) 08/09/18 16:50 Hgb 10.9 g/dL (14.0-18.0) L 08/09/18 16:50 Hct 33.4 % (42.0-52.0) L 08/09/18 16:50 MCV 93.8 fl (80.0-105.0) 08/09/18 16:50 MCH 30.6 pg (25.0-35.0) 08/09/18 16:50 MCHC 32.6 g/dl (31.0-37.0) 08/09/18 16:50 RDW 15.5 % (11.5-14.5) H 08/09/18 16:50 Plt Count 253 10^3/uL (120.0-450.0) 08/09/18 16:50 MPV 9.2 fl (7.0-11.0) 08/09/18 16:50 Neut % (Auto) 71.2 % (50.0-68.0) H 08/09/18 16:50 Lymph % (Auto) 18.9 % (22.0-35.0) L 08/09/18 16:50 [place] % (Auto) 3.9 % (1.0-6.0) 08/09/18 16:50 Eos % (Auto) 5.3 % (1.5-5.0) H 08/09/18 16:50 Baso % (Auto) 0.7 % (0.0-3.0) 08/09/18 16:50 Lymph # (Auto) 1.4 (1.2-3.4) 08/09/18 16:50 [place] # (Auto) 0.3 (0.1-0.6) 08/09/18 16:50 Eos # (Auto) 0.4 (0.0-0.7) 08/09/18 16:50 Baso # (Auto) 0.05 K/mm3 (0.0-2.0) 08/09/18 16:50 Absolute Neuts (auto) 5.35 (1.4-6.5) 08/09/18 16:50 Sodium 137 mmol/L (132-148) 08/09/18 16:50 Potassium 5.6 mmol/L (3.6-5.0) H* 08/09/18 16:50 Chloride 98 mmol/L (98-107) 08/09/18 16:50 Carbon Dioxide 25 mmol/L (21-33) 08/09/18 16:50 Anion Gap 20 (10-20) 08/09/18 16:50 BUN 98 mg/dL (7-21) H 08/09/18 16:50 Creatinine 18.2 mg/dl (0.8-1.5) H* 08/09/18 16:50 Est GFR ( Amer) 3 08/09/18 16:50 Est GFR (Non-Af Amer) 3 08/09/18 16:50 Random Glucose 100 mg/dL (70-110) 08/09/18 16:50 Calcium 9.1 mg/dL (8.4-10.5) 08/09/18 16:50 Phosphorus 6.0 mg/dL (2.5-4.5) H 08/09/18 16:50 Magnesium 2.8 mg/dL (1.7-2.2) H 08/09/18 16:50 Total Bilirubin 0.4 mg/dL (0.2-1.3) 08/09/18 16:50 AST 30 U/L (17-59) 08/09/18 16:50 ALT 26 U/L (7-56) 08/09/18 16:50 Alkaline Phosphatase 86 U/L (38-126) 08/09/18 16:50 Total Protein 6.8 g/dL (5.8-8.3) 08/09/18 16:50 Albumin 4.2 g/dL (3.0-4.8) 08/09/18 16:50 Globulin 2.6 gm/dL 08/09/18 16:50 Albumin/Globulin Ratio 1.6 (1.1-1.8) 08/09/18 16:50 - Hospital Course Hospital Course: Patient is a 43 year old male with PMH of HTN and ESRD (M/W/F dialysis) who presents for fatigue after missing a hemodialysis session. He states that his last dialysis session was last Tuesday. Patient states that he was unable to get dialysis this past Tuesday due to his AV fistula not working. He other shah has no other complaints. Patient was last admitted to [facility] for similar complaints and eloped. He denies fevers, chills, shortness of breath, chest pain, abdominal pain, nausea, vomiting, diarrhea, or urinary symptoms. Of note, nurse contacted his hemodialysis center and states that the patient is non-compliant and often skips his scheduled dialysis. There is nothing wrong with patient's AV fistula and he completed a session without issues last Tuesday. Patient Left AMA on 08/09 after completing one session of hemodialysis. Discharge Exam - Additional Findings Additional findings: - Constitutional Appears: Well, Non-toxic, No Acute Distress - Head Exam Head Exam: ATRAUMATIC, NORMAL INSPECTION - Eye Exam Eye Exam: EOMI, Normal appearance - ENT Exam ENT Exam: Mucous Membranes Moist - Neck Exam Neck exam: Positive for: Normal Inspection - Respiratory Exam Respiratory Exam: Clear to Auscultation Bilateral, NORMAL BREATHING PATTERN. absent: Rales, Rhonchi, Wheezes, Respiratory Distress - Cardiovascular Exam Cardiovascular Exam: REGULAR RHYTHM, +S1, +S2. absent: Gallop, Rubs, Systolic Murmur - GI/Abdominal Exam GI & Abdominal Exam: Normal Bowel Sounds, Soft. absent: Tenderness - Extremities Exam Extremities exam: Positive for: normal inspection Additional comments: AV fistula on left arm. Bruit heard, thrill palpable - Back Exam Back exam: NORMAL INSPECTION. absent: CVA tenderness (L), CVA tenderness (R), paraspinal tenderness - Neurological Exam Neurological exam: Alert, CN II-XII Intact, Oriented x3 - Psychiatric Exam Psychiatric exam: Normal Affect, Normal Mood - Skin Skin Exam: Dry, Intact, Normal Color, Warm Discharge Plan - Follow Up Plan Condition: STABLE Disposition: AGAINST MEDICAL ADVICE <Wanda Awad - Last Filed: 08/10/18 07:45> Provider - Provider Date of Admission: 08/09/18 17:47 Attending physician: Wanda Awad MD Primary care physician: Wanda Awad MD Consults: 08/09/18 18:43 Physiatry Consult Routine Comment: Consulting Provider: Galindo Boston Consulting Physician: Galindo Boston Reason for Consult: ESRD, missed dialysis Hospital Course - Lab Results Lab Results: Most Recent Lab Values WBC 7.5 10^3/uL (4.5-11.0) 08/09/18 16:50 RBC 3.56 10^6/uL (3.5-6.1) 08/09/18 16:50 Hgb 10.9 g/dL (14.0-18.0) L 08/09/18 16:50 Hct 33.4 % (42.0-52.0) L 08/09/18 16:50 MCV 93.8 fl (80.0-105.0) 08/09/18 16:50 MCH 30.6 pg (25.0-35.0) 08/09/18 16:50 MCHC 32.6 g/dl (31.0-37.0) 08/09/18 16:50 RDW 15.5 % (11.5-14.5) H 08/09/18 16:50 Plt Count 253 10^3/uL (120.0-450.0) 08/09/18 16:50 MPV 9.2 fl (7.0-11.0) 08/09/18 16:50 Neut % (Auto) 71.2 % (50.0-68.0) H 08/09/18 16:50 Lymph % (Auto) 18.9 % (22.0-35.0) L 08/09/18 16:50 [place] % (Auto) 3.9 % (1.0-6.0) 08/09/18 16:50 Eos % (Auto) 5.3 % (1.5-5.0) H 08/09/18 16:50 Baso % (Auto) 0.7 % (0.0-3.0) 08/09/18 16:50 Lymph # (Auto) 1.4 (1.2-3.4) 08/09/18 16:50 [place] # (Auto) 0.3 (0.1-0.6) 08/09/18 16:50 Eos # (Auto) 0.4 (0.0-0.7) 08/09/18 16:50 Baso # (Auto) 0.05 K/mm3 (0.0-2.0) 08/09/18 16:50 Absolute Neuts (auto) 5.35 (1.4-6.5) 08/09/18 16:50 Sodium 137 mmol/L (132-148) 08/09/18 16:50 Potassium 5.6 mmol/L (3.6-5.0) H* 08/09/18 16:50 Chloride 98 mmol/L (98-107) 08/09/18 16:50 Carbon Dioxide 25 mmol/L (21-33) 08/09/18 16:50 Anion Gap 20 (10-20) 08/09/18 16:50 BUN 98 mg/dL (7-21) H 08/09/18 16:50 Creatinine 18.2 mg/dl (0.8-1.5) H* 08/09/18 16:50 Est GFR ( Amer) 3 08/09/18 16:50 Est GFR (Non-Af Amer) 3 08/09/18 16:50 Random Glucose 100 mg/dL (70-110) 08/09/18 16:50 Calcium 9.1 mg/dL (8.4-10.5) 08/09/18 16:50 Phosphorus 6.0 mg/dL (2.5-4.5) H 08/09/18 16:50 Magnesium 2.8 mg/dL (1.7-2.2) H 08/09/18 16:50 Total Bilirubin 0.4 mg/dL (0.2-1.3) 08/09/18 16:50 AST 30 U/L (17-59) 08/09/18 16:50 ALT 26 U/L (7-56) 08/09/18 16:50 Alkaline Phosphatase 86 U/L (38-126) 08/09/18 16:50 Total Protein 6.8 g/dL (5.8-8.3) 08/09/18 16:50 Albumin 4.2 g/dL (3.0-4.8) 08/09/18 16:50 Globulin 2.6 gm/dL 08/09/18 16:50 Albumin/Globulin Ratio 1.6 (1.1-1.8) 08/09/18 16:50 Attending/Attestation - Attestation I have personally seen and examined this patient.: Yes I have fully participated in the care of the patient.: Yes I have reviewed all pertinent clinical information, including history, physical exam and plan: Yes
--- NOTE | 2018-08-10 01:04 | CON ---
DATE: 08/09/2018 LOCATION: [facility]. NEPHROLOGY CONSULTATION HISTORY OF PRESENT ILLNESS: The patient is a 43-year-old male with past medical history of hypertension and ESRD, on hemodialysis (since the past 10 months, currently Tuesday, Tuesday, Tuesday at [facility] under our outpatient service) presented to ED with complaint of fistula malfunction, Nephrology being consulted for ESRD care. The patient has a history of irregular compliance to dialysis regimen; last hemodialysis session was 5 days ago, the patient missing dialysis treatment 2 days ago and today. The patient was having some issues with his AV graft with some difficulty in cannulating and with inadequate clearances, possibly suggestive of underlying stenosis; nevertheless, the patient has been having adequate blood flows on dialysis; the patient currently denies any shortness of breath, nausea, vomiting, chest pain, palpitations. The patient still makes adequate amount of urine, does acknowledge leg swelling. PAST MEDICAL HISTORY: As above. SOCIAL HISTORY: Prior cigarette use. FAMILY HISTORY: CKD. REVIEW OF SYSTEMS: CONSTITUTIONAL: No decreased appetite. HEENT: No dysphagia. RESPIRATORY: No dyspnea. CARDIOVASCULAR: No chest pain or palpitations. GI: No nausea, vomiting, or diarrhea. : No dysuria. MUSCULOSKELETAL: Has chronic knee pain, but denies taking any pain meds. SKIN: Reports some pruritus over his shins. NEURO: Denies any numbness in his feet. No dizziness. VITAL SIGNS: This afternoon, blood pressure 146/83, heart rate 73, respirations 19, temperature 97.6, O2 sat 98% on room air. PHYSICAL EXAMINATION: GENERAL: No distress, conversing coherently in full sentences. HEENT: Moist mucous membranes. Nonicteric. No cervical lymphadenopathy. No JVD elevation. RESPIRATORY: Lungs are clear to auscultation bilaterally. No rales, no rhonchi, no wheezes. CARDIOVASCULAR: Heart sounds S1, S2 normal. No murmurs, no gallops. No rubs. GI: Abdomen soft, nontender, nondistended. : No bladder distention. EXTREMITIES: 2+ bilateral lower leg edema. SKIN: Warm, no cyanosis. Left arm AV graft with good bruit. PSYCHIATRIC: Normal mood, normal affect. NEURO: No resting tremor. LABORATORY DATA: CBC: WBC 7.5, hemoglobin 10.9, hematocrit 33.4, platelets 253. Chemistry panel: Sodium 137, potassium 5.6, chloride 98, bicarb 25, BUN 98, creatinine 18.2, glucose 100, calcium 9.1, phosphorus 6, magnesium 2.8, AST 30, ALT 26, albumin 4.2. Chest x-ray directly visualized, lungs were clear. ASSESSMENT AND PLAN: 1. End stage renal disease, on hemodialysis. The patient with modest hyperkalemia today after missing two dialysis treatments; has increased edema, otherwise no evidence of volume overload; dialyzing today urgently over 2 hours with 2 liters ultrafiltration goal. 2. Hypertensive chronic kidney disease/end stage renal disease, blood pressure elevated. The patient reports taking his medications regularly; however, probably has a volume excess component that is driving his hypertension, will continue home medications as ordered. 3. Chronic kidney disease mineral bone disorder. The patient with hyperphosphatemia, will continue on PhosLo 2 tablets with each meal. 4. Anemia of chronic kidney disease. Hemoglobin on goal of 10-11 g. We will dose Epogen as outpatient per protocol. The patient counseled extensively on need for regular adherence to dialysis regimen and to follow instructions for ESRD care; discussed that a transplant will not be an option if the patient has major compliance issues. The patient states that he understands our concerns and will try to adhere to our advice. Thank you for this referral. We will be following closely. Galindo Boston MD
[2018-08-10] MEDS ORDERED: Non Formulary Medication (Calcium Acetate [Phoslo] 667 MG) PO SCH (10:00)
== END 2018-08-09 21:18 | disposition left against medical advice (07) ==
LOC: ED 15:50 → ERH 17:47 → 3RSO 20:58
PROVIDERS: ADMIT Internal Medicine; ATTEND Internal Medicine
DX: I12.0 Hypertensive chronic kidney disease with stage 5 chronic kidney disease or end stage renal disease (principal); N18.6 End stage renal disease; E87.5 Hyperkalemia; D63.1 Anemia in chronic kidney disease; E83.39 Other disorders of phosphorus metabolism; M89.9 Disorder of bone, unspecified; Z87.891 Personal history of nicotine dependence; Z91.15 Patient's noncompliance with renal dialysis; Z91.19 Patient's noncompliance with other medical treatment and regimen; Z99.2 Dependence on renal dialysis
CPT/HCPCS: 71045; 80053; 83735; 84100; 85025; 90935; 99282; G0378